=== PATIENT | male | born 1940 | race Caucasian/White ===

== ENCOUNTER 2023-08-08 06:06 | Day surgery (SDC) | payer OTHER, SELFPAY ==
[2023-07-25 08:49] LABS: Hematocrit 40.2 % (39.0-52.0); Hemoglobin 13.6 g/dL (13.0-18.0); Mean Corp Hgb Conc. 33.8 g/dL (33.0-37.0); Mean Corpuscular Volume 94.6 fL (80.0-94.0); Mean Platelet Volume 10.6 fL (7.4-10.4); Platelet Count 157 10^3/uL (130-400); Red Blood Cell Count 4.25 10^6/uL (4.70-6.10); Red Cell Dist. Width 13.3 % (11.5-14.5); White Blood Cell Count 5.2 10^3/uL (4.8-10.8)
[2023-07-25 09:04] LABS: INR 2.38; PT 26.3 Sec (11.4-14.6)
[2023-07-25 09:18] LABS: Blood Urea Nitrogen 15 mg/dl (9-20); Calcium 9.1 mg/dl (8.4-10.2); Carbon Dioxide 28 mmol/L (22-30); Chloride 102 mmol/L (98-107); Glucose 98 mg/dl (70-99); Potassium 4.1 mmol/L (3.5-5.1); Sodium 138 mmol/L (135-145); eGFR > 60.00
[2023-07-25 12:03] VITALS: BMI 39.0
--- NOTE | 2023-08-01 14:40 | PTCARENOTE ---
Destinee at 's office was notified of INR 2.38 & PTT 41 collected on 07/25/23.
[2023-08-08 06:53] VITALS: BP 128/86
[2023-08-08] MEDS: NORMOSOL-R 1000 IV (07:10)
[2023-08-08 07:13] VITALS: BMI 39.0
[2023-08-08 08:30] VITALS: BP 117/72; BP 128/86
[2023-08-08 08:45] VITALS: BP 115/62
[2023-08-08 09:00] VITALS: BP 110/70
[2023-08-08] MEDS: Pyridium 200 MG PO (09:00)
[2023-08-08 09:20] VITALS: BP 122/76
[2023-08-08 09:50] VITALS: BP 126/72
== END 2023-08-08 09:55 | disposition home or self-care (01) ==
LOC: SDS 06:06
PROVIDERS: ATTENDING PHYSICIAN Specialist; FAMILY PHYSICIAN Family Medicine; OTHER PHYSICIAN Internal Medicine Hematology & Oncology; REFERRING PHYSICIAN Internal Medicine Cardiovascular Disease
DX: N13.1 Hydronephrosis with ureteral stricture, not elsewhere classified (principal); Z87.442 Personal history of urinary calculi
CPT/HCPCS: 52332; 36415; 74018; 76000; 80048; 85027; 85610; 85730; C2617

== ENCOUNTER → 2023-10-26 17:55 | Outpatient (REF) | payer OTHER, SELFPAY | LOC: PAVMRI 17:55 | PROVIDERS: ATTENDING PHYSICIAN Student in an Organized Health Care Education/Training Program; FAMILY PHYSICIAN Family Medicine | DX: M25.552 Pain in left hip (principal); M54.16 Radiculopathy, lumbar region | CPT/HCPCS: 72148; 73721 ==

== ENCOUNTER → 2023-11-19 10:45 | Outpatient (REF) | payer OTHER, SELFPAY | LOC: PET 10:45 | PROVIDERS: ATTENDING PHYSICIAN Radiology Radiation Oncology | DX: C61 Malignant neoplasm of prostate (principal) | CPT/HCPCS: 78815; A9595 ==

== ENCOUNTER → 2023-11-27 14:11 | Outpatient (REF) | payer OTHER, SELFPAY | LOC: HWRAD 14:11 | PROVIDERS: ATTENDING PHYSICIAN Family Medicine | DX: M25.552 Pain in left hip (principal); Z85.46 Personal history of malignant neoplasm of prostate | CPT/HCPCS: 73502 ==

== ENCOUNTER 2024-04-09 06:15 | Day surgery (SDC) | payer OTHER, SELFPAY ==
[2024-03-31 09:57] LABS: Hematocrit 37.7 % (39.0-52.0); Hemoglobin 12.6 g/dL (13.0-18.0); Mean Corp Hgb Conc. 33.4 g/dL (33.0-37.0); Mean Corpuscular Hgb 30.9 pg (27.0-31.0); Mean Corpuscular Volume 92.4 fL (80.0-94.0); Mean Platelet Volume 10.5 fL (7.4-10.4); Platelet Count 166 10^3/uL (130-400); Red Blood Cell Count 4.08 10^6/uL (4.70-6.10); Red Cell Dist. Width 13.7 % (11.5-14.5); White Blood Cell Count 5.1 10^3/uL (4.8-10.8)
[2024-03-31 10:41] VITALS: BMI 37.4
[2024-03-31 10:41] LABS: Blood Urea Nitrogen 15 mg/dl (9-20); Calcium 8.8 mg/dl (8.4-10.2); Carbon Dioxide 25 mmol/L (22-30); Chloride 105 mmol/L (98-107); Glucose 94 mg/dl (70-99); Potassium 4.4 mmol/L (3.5-5.1); Sodium 143 mmol/L (135-145); eGFR > 60.00
[2024-04-09] VITALS (9 sets, daily range): BP systolic 107–129; BP diastolic 71–83; BMI 37.4
--- NOTE | 2024-04-09 06:47 | PTCARENOTE ---
Dr. Daley ok with patient taking last dose of Coumadin last night on 04/08/24 at 2130. aware and ok with it.
[2024-04-09] MEDS: Pyridium 200 MG PO (09:01)
== END 2024-04-09 10:09 | disposition home or self-care (01) ==
LOC: SDS 06:15
PROVIDERS: ATTENDING PHYSICIAN Specialist; FAMILY PHYSICIAN Family Medicine; OTHER PHYSICIAN Internal Medicine Cardiovascular Disease; OTHER PHYSICIAN Internal Medicine Hematology & Oncology
DX: N13.5 Crossing vessel and stricture of ureter without hydronephrosis (principal); Z87.442 Personal history of urinary calculi
CPT/HCPCS: 52332; 36415; 74420; 76000; 80048; 85027; 93005; C2617

== ENCOUNTER → 2024-04-16 07:46 | Outpatient (REF) | payer OTHER, SELFPAY | LOC: EMG 07:46 | PROVIDERS: ATTENDING PHYSICIAN Orthopaedic Surgery; FAMILY PHYSICIAN Family Medicine | DX: R20.0 Anesthesia of skin (principal) | CPT/HCPCS: 95886; 95909 ==

== ENCOUNTER → 2024-09-02 09:22 | Outpatient (REF) | payer OTHER, SELFPAY | LOC: RAD 09:22 | PROVIDERS: ATTENDING PHYSICIAN Internal Medicine Hematology & Oncology; FAMILY PHYSICIAN Family Medicine; REFERRING PHYSICIAN Surgery Vascular Surgery | DX: I70.219 Atherosclerosis of native arteries of extremities with intermittent claudication, unspecified extremity (principal) | CPT/HCPCS: 93922; 93925 ==

== ENCOUNTER → 2024-09-12 12:35 | Outpatient (REF) | payer OTHER, SELFPAY | LOC: HWRCS 12:35 | PROVIDERS: ATTENDING PHYSICIAN Internal Medicine Cardiovascular Disease; FAMILY PHYSICIAN Family Medicine | DX: I48.91 Unspecified atrial fibrillation (principal) | CPT/HCPCS: 93306 ==

== ENCOUNTER → 2024-09-26 09:49 | Outpatient (REF) | payer OTHER, SELFPAY | LOC: HWRAD 09:49 | PROVIDERS: ATTENDING PHYSICIAN Surgery Vascular Surgery; FAMILY PHYSICIAN Family Medicine | DX: S91.002A Unspecified open wound, left ankle, initial encounter (principal); I70.209 Unspecified atherosclerosis of native arteries of extremities, unspecified extremity | CPT/HCPCS: 93970 ==

== ENCOUNTER 2024-12-17 06:33 | Day surgery (SDC) | payer OTHER, SELFPAY ==
[2024-12-17] VITALS (12 sets, daily range): BP systolic 89–142; BP diastolic 59–80; BMI 37.9
[2024-12-17] MEDS: NORMOSOL-R/PLASMALYTE-A 1000 IV (08:53)
== END 2024-12-17 12:02 | disposition home or self-care (01) ==
LOC: SDS 06:33
PROVIDERS: ATTENDING PHYSICIAN Specialist
DX: N13.5 Crossing vessel and stricture of ureter without hydronephrosis (principal); Z87.442 Personal history of urinary calculi
CPT/HCPCS: 52332; 74018; 76000; C2617